=== PATIENT | female | born 1965 | race Caucasian/White ===

== ENCOUNTER → 2017-12-09 07:57 | Outpatient (CLI) | payer BC, SELFPAY ==
[2017-12-09 09:14] LABS: Cholesterol 194 mg/dL (140-199); HDL Cholesterol 56 mg/dL (40-60); Hemoglobin A1C% w Est Avg Glu 5.5 % (4.0-6.0); LDL Cholesterol Calculated 125 mg/dL (<100); Triglycerides 66 mg/dL (35-150)
== END ==
PROVIDERS: Family Provider Family Medicine; PCP Family Medicine; Visit Provider Family Medicine
DX: Z13.9 Encounter for screening, unspecified (principal); E03.9 Hypothyroidism, unspecified
CPT/HCPCS: 36415; 80061; 83036; 84443

== ENCOUNTER → 2018-05-02 16:51 | Outpatient (CLI) | payer BC, SELFPAY ==
--- NOTE | 2018-05-02 16:57 | DI.RAD.S_ITS ---
PROCEDURE: XR TOE RT MIN 2V INDICATIONS: TOE PAIN RIGHT FOOT TECHNIQUE: 3 views of the right fourth toe were acquired. COMPARISON: None. FINDINGS: Bones: There is mild hallux valgus. Costophrenic changes are noted throughout 4 fluid joints. No fractures or dislocations. No suspicious bony lesions. Soft tissues: No suspicious soft tissue densities. IMPRESSION: No definite acute fourth toe fracture or dislocation. Mild forefoot joint osteoarthritis. Dictated by: Morteza Foster M.D. on 05/02/2018 at 17:21 Approved by: Morteza Foster M.D. on 05/02/2018 at 17:22
== END ==
PROVIDERS: Family Provider Family Medicine; PCP Family Medicine; Visit Provider Family Medicine
DX: M79.674 Pain in right toe(s) (principal); M20.11 Hallux valgus (acquired), right foot; M19.071 Primary osteoarthritis, right ankle and foot
CPT/HCPCS: 73660

== ENCOUNTER → 2018-08-14 16:50 | Outpatient (CLI) | payer BC, SELFPAY ==
[2018-08-14 17:28] LABS: Hemoglobin A1C% w Est Avg Glu 5.5 % (4.0-6.0)
[2018-08-14 18:25] LABS: Thyroid Stimulating Hormone 0.18 uIU/mL (0.47-4.68)
[2018-08-14 18:59] LABS: Hep C Virus Ab w/Reflex Quant NEGATIVE s/c (NEGATIVE)
== END ==
PROVIDERS: Family Provider Family Medicine; PCP Family Medicine; Visit Provider Family Medicine
DX: H53.2 Diplopia (principal); E03.9 Hypothyroidism, unspecified; Z00.00 Encounter for general adult medical examination without abnormal findings
CPT/HCPCS: 36415; 83036; 84443; 86803

== ENCOUNTER → 2018-10-19 13:58 | Outpatient (CLI) | payer BC, SELFPAY ==
[2018-10-19 14:40] LABS: Blood Urea Nitrogen 14 mg/dL (7-17); Calcium 9.2 mg/dL (8.4-10.2); Carbon Dioxide 28 mmol/L (22-32); Chloride 104 mmol/L (98-107); Estimated Glomerular Filt Rate > 60.0 mL/min (>60); Glucose 99 mg/dL (70-100); HEMOLYSIS 18 (0-50); Potassium 3.8 mmol/L (3.4-5.1); Sodium 141 mmol/L (137-145)
[2018-10-19 14:58] LABS: T4 Total Thyroxine 6.84 ug/dL (5.5-11.0)
[2018-10-19 15:11] LABS: Thyroid Stimulating Hormone 0.39 uIU/mL (0.47-4.68)
== END ==
PROVIDERS: Family Provider Family Medicine; PCP Family Medicine; Visit Provider Family Medicine
DX: F41.9 Anxiety disorder, unspecified (principal); R51 Headache; E03.9 Hypothyroidism, unspecified
CPT/HCPCS: 36415; 80048; 84436; 84443

== ENCOUNTER → 2022-12-19 18:20 | Outpatient (CLI) | payer BC, SELFPAY | PROVIDERS: Family Provider Family Medicine; PCP Family Medicine; Visit Provider Physician Assistant | DX: J02.9 Acute pharyngitis, unspecified (principal) | CPT/HCPCS: 87070 ==